=== PATIENT | male | born 1950 | race Caucasian/White ===

== ENCOUNTER 2019-07-21 05:15 | Day surgery (SDC) | payer MEDICARE, BC ==
[~2019-07-21 05:15] MED LIST: Dextrose 5%-0.45% NaCl 1,000 ML IV SCH; Sodium Chloride 0.9% 10 ML Syringe FLUSH PRN
[2019-07-21] MEDS ORDERED: Midazolam 1 MG/ML 2 ML SDV IV ONE ×7 (05:16→06:38)
[2019-07-21] MEDS ORDERED: fentaNYL 100 MCG/2 ML SDV IV ONE ×3 (05:16→06:30)
[2019-07-21] MEDS ORDERED: Sodium Chloride 0.9% 10 ML Syringe FLUSH PRN (06:00)
[2019-07-21] MEDS ORDERED: Dextrose 5%-0.45% NaCl 1,000 ML IV SCH (06:00)
[2019-07-21] MEDS ORDERED: Midazolam 1 MG/ML 2 ML SDV ONE (06:14)
[2019-07-21] MEDS ORDERED: fentaNYL 100 MCG/2 ML SDV ONE (06:15)
--- NOTE | 2019-07-21 13:45 | OR ---
DATE: 07/21/2019 PROCEDURE PERFORMED: Total colonoscopy. INSTRUMENT USED: [id number] Olympus video colonoscope. PREMEDICATIONS: Fentanyl 100 mcg intravenous, Versed 4 mg intravenous. Nasal O2 cannula. The procedure was done under pulse oximetry, BP recording, and cost engineer. INDICATION: Screening colonoscopic examination is done for detection of any polypoid lesions and removal, endoscopic hemostasis therapy if needed. DESCRIPTION OF PROCEDURE: Initial rectal exam was unremarkable. Rigid anoscopy showed small internal hemorrhoids without bleeding from them. The colonoscope was passed with ease up to the ileocecal area. Photographs were taken of the normal-appearing cecum, identified by double-bulged ileocecal folds. No bleeding was noted from any of the visualized areas at the commencement of the examination. The bowel preparation was found to be adequate. Chappells scale 3 in cecum and ascending colon, transverse colon, and left colon. Three each with total of 9. No stricture. No vascular ectasia. No large isolated ulcerations seen. No evidence of diffuse inflammatory bowel disease in the form of friability, contact bleeding, or ulcerations. No polyp or tumor mass identified. Probing the proximal sides of folds and flexures using adequate distention and clearing up the stool material withdrawal of the scope was made. Cecum to rectum time over 6 minutes. No bleeding was noted from any of the visualized areas at the completion of examination. IMPRESSION: Internal hemorrhoids. The patient tolerated the procedure well. [facility] /[id number]
--- NOTE | 2019-07-21 14:21 | LETTER ---
07/21/2019 IRAIS [facility] [address], [address] [place], [place] [address] RE: CALLI PRESTON COREY : 1950 Dear Ms. Akers: Mr. Calli Preston had colonoscopic examination done this morning and he tolerated the procedure well. I herewith send a copy of the endoscopy note and photographs for your review. Thank you. Sincerely, [facility] /[id number]
== END 2019-07-21 08:58 | disposition home or self-care (01) ==
LOC: DL.ENDO 05:15
PROVIDERS: ATTEND Internal Medicine Gastroenterology
DX: Z12.11 Encounter for screening for malignant neoplasm of colon (principal); K64.8 Other hemorrhoids; I10 Essential (primary) hypertension; E78.5 Hyperlipidemia, unspecified; Z88.2 Allergy status to sulfonamides
CPT/HCPCS: G0121; J2250; J3010; J7042